=== PATIENT | male | born 1965 | race African-American/Black ===

== ENCOUNTER 2023-08-10 03:01 | Emergency (ER) | payer OTHER, MEDICAID ==
[~2023-08-10] VITALS: Ht 185.4 cm; Wt 72.7 kg
[2023-08-10 04:12] VITALS: BP 120/81; PULSE 65; RESP 18; TEMP 98.1; O2SAT 99
[2023-08-10] MEDS: TETANUS-DIPTH-ACEL PERTUSSIS 0.5ML SYR Tdap IM ONE (06:16)
[2023-08-10] MEDS: KETOROLAC TROMETH 60MG/2ML VIAL IM ONE (06:33)
[2023-08-10] MEDS: cefTRIAXone SOD 1,000 MG VL IM ONE (06:39)
[2023-08-10] MEDS: LIDOCAINE 1% HCL (LOCAL ANESTH.) INJ 20ML MDV IJ ONE (06:40)
[2023-08-10] MEDS ORDERED: CEPH500C PO (07:02)
== END 2023-08-10 07:27 | disposition home or self-care (01) ==
LOC: ER 03:01
DX: S61.210A Laceration without foreign body of right index finger without damage to nail, initial encounter (principal); S61.011A Laceration without foreign body of right thumb without damage to nail, initial encounter; S61.212A Laceration without foreign body of right middle finger without damage to nail, initial encounter; S61.214A Laceration without foreign body of right ring finger without damage to nail, initial encounter; F20.9 Schizophrenia, unspecified; Z88.6 Allergy status to analgesic agent; W26.0XXA Contact with knife, initial encounter; Y93.89 Activity, other specified; Y92.89 Other specified places as the place of occurrence of the external cause; Y99.8 Other external cause status
CPT/HCPCS: 12002; 73130; 90471; 90715; 96372; 99284; J0696; J1885; J2001